=== PATIENT | male | born 1965 | race Hispanic/Latino ===

== ENCOUNTER 2019-07-12 10:00 | Emergency (ER) | payer OTHER ==
[~2019-07-12] VITALS: Ht 175.3 cm; Wt 98.9 kg
[2019-07-12 10:15] VITALS: BP 158/75
[2019-07-12] MEDS ORDERED: LIDOCAINE 1% W/EPINEPHRINE 20 ML VIAL INJ ONE (10:30)
[2019-07-12] MEDS ORDERED: BACITRACIN ZINC 0.9GM TP ONE ×2 (10:33→11:00)
--- NOTE | 2019-07-12 10:52 | NUR ---
marlene yu performs lac repair cleaning wound and using 9 sutures and steri strips and non adhesive bandage and coban wrap
== END 2019-07-12 10:56 | disposition home or self-care (01) ==
LOC: ER 10:00 → EDBD 10:00 → ER 10:56
DX: S81.812A Laceration without foreign body, left lower leg, initial encounter (principal); W26.8XXA Contact with other sharp object(s), not elsewhere classified, initial encounter; Y99.0 Civilian activity done for income or pay; I10 Essential (primary) hypertension; E11.9 Type 2 diabetes mellitus without complications
CPT/HCPCS: 36415; 82948; 99283